=== PATIENT | male | born 1990 | race Hispanic/Latino ===

== ENCOUNTER 2019-07-06 | Emergency (ER) | payer SELFPAY ==
[2019-07-06] MEDS ORDERED: MORPHINE 4 MG/ML SYR ONE (00:21)
[2019-07-06] MEDS ORDERED: NA CHLORIDE 0.9% 1,000 ML ONE (00:21)
[2019-07-06] MEDS ORDERED: ONDANSETRON 4 MG/2 ML VIAL ONE (00:21)
[2019-07-06] MEDS ORDERED: FENTANYL CITR 100 MCG/2 ML ONE (00:44)
[2019-07-06 00:46] LABS: Basophils % 0.3 % (0-1.3); Hematocrit 43.1 % (39.6-49.0); MPV 11.2 fL (7.6-11.3); RBC Red Blood Cell Count 5.01 M/uL (4.33-5.43)
[2019-07-06 01:08] LABS: Potassium 3.5 mmol/L (3.5-5.1)
--- NOTE | 2019-07-06 02:45 | ER ---
Nurse's Notes [facility] Name: Don Han Age: 28 yrs Sex: Male : 1990 Arrival Date: 07/06/2019 Time: 00:05 Bed 14 Private MD: Diagnosis: Calculus of kidney and ureter Presentation: 07/06 00:24 Presenting complaint: Patient states: WOKE UP WITH SHARP PAIN RADIATING TO THE LEFT SIDE AND BACK. WITH NAUSEA AND VOMITING. Transition of care: patient was not received from another setting of care. Onset of symptoms was July 06, 2019 at 00:00. Risk Assessment: Do you want to hurt yourself or someone else? Patient reports no desire to harm self or others. Initial Sepsis Screen: Does the patient meet any 2 criteria? No. Patient's initial sepsis screen is negative. Does the patient have a suspected source of infection? No. Patient's initial sepsis screen is negative. Care prior to arrival: None. 00:24 Method Of Arrival: Ambulatory rv 00:24 Acuity: GRISEL 3 rv Historical: - Allergies: 00:28 No Known Allergies; rv - Home Meds: 00:28 None [Active]; rv - PMHx: 00:28 Asthma; Seizures; rv - PSHx: 00:28 None; rv - Immunization history:: Adult Immunizations unknown. - Social history:: Smoking status: Patient/guardian denies using tobacco, never smoked. - Ebola Screening: : No symptoms or risks identified at this time. Screenin:28 Abuse screen: Denies threats or abuse. Denies injuries from another. Nutritional rv screening: No deficits noted. Tuberculosis screening: No symptoms or risk factors identified. Fall Risk None identified. Assessment: 00:26 General: Appears in no apparent distress. uncomfortable, Behavior is cooperative, rv crying. Pain: Complains of pain in left lower quadrant Pain radiates to left low back Pain currently is 10 out of 10 on a pain scale. Quality of pain is described as sharp, Pain began suddenly, Is continuous. Neuro: Level of Consciousness is awake, alert, obeys commands, Oriented to person, place, time, situation. Cardiovascular: Patient's skin is warm and dry. Respiratory: Airway is patent. GI: Bowel sounds present X 4 quads. Abd is soft X 4 quads Abdomen is tender to palpation in left lower quadrant. : No signs and/or symptoms were reported regarding the genitourinary system. EENT: No signs and/or symptoms were reported regarding the EENT system. Derm: Skin is intact. Musculoskeletal: No signs and/or symptoms reported regarding the musculoskeletal system. 01:36 Reassessment: Patient appears in no apparent distress at this time. Patient and/or family updated on plan of care and expected duration. Pain level reassessed. Patient is alert, oriented x 3, equal unlabored respirations, skin warm/dry/pink. patient is still complaining of pain after giving Morphine and Fentanyl. CT scan done. awaiting result. 01:50 Reassessment: Patient appears in no apparent distress at this time. Patient and/or family updated on plan of care and expected duration. Pain level reassessed. Patient is alert, oriented x 3, equal unlabored respirations, skin warm/dry/pink. 02:38 Reassessment: Patient appears in no apparent distress at this time. No changes from previously documented assessment. Patient and/or family updated on plan of care and expected duration. Pain level reassessed. Patient is alert, oriented x 3, equal unlabored respirations, skin warm/dry/pink. Vital Signs: 00:26 BP 156 / 94; Pulse 71; Resp 15; Temp 97.7; Pulse Ox 98% ; Weight 140.61 kg; Height 6 rv ft. (182.88 cm); Pain 10/10; 01:00 BP 118 / 61; Pulse 64; Resp 15; Pulse Ox 96% on R/A; rv 02:30 BP 133 / 63; Pulse 87; Resp 18; Pulse Ox 99% on R/A; wh 00:26 Body Mass Index 42.04 (140.61 kg, 182.88 cm) ED Course: 00:05 Patient arrived in ED. cf2 00:06 Aneta Sotelo FNP-C [facility]. kb 00:06 Nicolas Stearns MD is Attending Physician. kb 00:07 Eric Rahman RN is Primary Nurse. rv 00:24 Basic Metabolic Panel Sent. rv 00:24 CBC with Diff Sent. rv 00:26 Triage completed. rv 00:29 Initial lab(s) drawn, by co, sent to lab. Inserted saline lock: 22 gauge in left rv forearm, using aseptic technique. Blood collected. 00:29 Patient has correct armband on for positive identification. Bed in low position. Call rv light in reach. Side rails up X 1. Pulse ox on. NIBP on. 00:29 Patient placed in the treatment room, on a stretcher, on pulse oximetry, Patient rv notified of wait time. 01:02 Radiology exam delayed due to lab results not completed at this time. (BUN/Creatinine). [email or web address] 01:37 Report given to kingston schwab. rv 01:51 CT completed. Patient tolerated procedure well. Patient moved to CT via stretcher. [email or web address] Patient moved back from CT. 02:05 CT Abd/Pelvis - IV Contrast Only In Process Unspecified. EDMS 02:53 No provider procedures requiring assistance completed. IV discontinued, intact, wh bleeding controlled, No redness/swelling at site. Administered Medications: 00:23 Drug: Zofran 4 mg Route: IVP; Site: left forearm; rv 01:45 Follow up: Response: No adverse reaction rv 00:24 Drug: NS 0.9% 1000 ml Route: IV; Rate: 1000 ml; Site: left forearm; rv 01:45 Follow up: IV Status: Completed infusion; IV Intake: 1000ml rv 00:24 Drug: morphine 4 mg {Note: RASS 0.} Route: IVP; Site: left forearm; rv 01:45 Follow up: Response: Pain is unchanged, physician notified; RASS: Alert and Calm (0) rv 00:50 Drug: fentaNYL (PF) 50 mcg Route: IVP; Site: left forearm; rv 01:45 Follow up: Response: Pain is unchanged, physician notified; RASS: Alert and Calm (0) rv Intake: 01:45 IV: 1000ml; Total: 1000ml. rv Outcome: 02:43 Discharge ordered by . sundeep 02:53 Discharged to home ambulatory. 02:53 Condition: good 02:53 Discharge instructions given to patient, Instructed on discharge instructions, follow up and referral plans. medication usage, urine strainer, POC Kidney Stones Demonstrated understanding of instructions, follow-up care, medications, POC Prescriptions given X 4. 02:55 Patient left the ED. Signatures: Dispatcher [employer] EDTN Aneta Sotelo FNP-C FNP-Ckb Habalo, Winsy Eric Rahman RN RN Lissett Tolentino [email or web address] Arminda Stafford cf2
--- NOTE | 2019-07-06 02:45 | EDPHYS ---
Physician Documentation [facility] Name: Don Han Age: 28 yrs Sex: Male : 1990 Arrival Date: 07/06/2019 Time: 00:05 Bed 14 Private MD: ED Physician Nicolas Stearns HPI: 07/06 00:12 This 28 yrs old Male presents to ER via Unassigned with complaints of Abdominal Pain, kb Back Pain. 00:12 The patient presents with abdominal pain in the left lower quadrant. Onset: The kb symptoms/episode began/occurred just prior to arrival. The symptoms do not radiate. Associated signs and symptoms: Pertinent positives: nausea and vomiting, Pertinent negatives: anorexia, blood in stools, chest pain, constipation, diarrhea, dysuria, fever, headache, hematuria, palpitations, shortness of breath, testicular pain, vomiting blood. The symptoms are described as constant. Modifying factors: The symptoms are alleviated by nothing, the symptoms are aggravated by nothing. Severity of pain: At its worst the pain was severe in the emergency department the pain is unchanged. The patient has not experienced similar symptoms in the past. The patient has not recently seen a physician. 00:21 Woken up with sudden, severe LLQ pain just materials buyer. Reports vomiting. Denies fever, kb diarrhea. Has never had this pain before. Denies any symptoms prior to going to sleep. Historical: - Allergies: 00:28 No Known Allergies; rv - Home Meds: 00:28 None [Active]; rv - PMHx: 00:28 Asthma; Seizures; rv - PSHx: 00:28 None; rv - Immunization history:: Adult Immunizations unknown. - Social history:: Smoking status: Patient/guardian denies using tobacco, never smoked. - Ebola Screening: : No symptoms or risks identified at this time. ROS: 00:14 Constitutional: Negative for fever, chills, and weight loss, ENT: Negative for injury, kb pain, and discharge, Neck: Negative for injury, pain, and swelling, Cardiovascular: Negative for chest pain, palpitations, and edema, Respiratory: Negative for shortness of breath, cough, wheezing, and pleuritic chest pain, Back: Negative for injury and pain, MS/Extremity: Negative for injury and deformity, Skin: Negative for injury, rash, and discoloration, Neuro: Negative for headache, weakness, numbness, tingling, and seizure. 00:14 Abdomen/GI: Positive for abdominal pain, nausea and vomiting, Negative for diarrhea, constipation, abdominal cramps, abdominal distension, anorexia. Exam: 00:14 Head/Face: Normocephalic, atraumatic. ENT: Nares patent. No nasal discharge, no kb septal abnormalities noted. Tympanic membranes are normal and external auditory canals are clear. Oropharynx with no redness, swelling, or masses, exudates, or evidence of obstruction, uvula midline. Mucous membranes moist. Neck: Trachea midline, no thyromegaly or masses palpated, and no cervical lymphadenopathy. Supple, full range of motion without nuchal rigidity, or vertebral point tenderness. No Meningismus. Chest/axilla: Normal chest wall appearance and motion. Nontender with no deformity. No lesions are appreciated. Cardiovascular: Regular rate and rhythm with a normal S1 and S2. No gallops, murmurs, or rubs. Normal PMI, no JVD. No pulse deficits. Respiratory: Lungs have equal breath sounds bilaterally, clear to auscultation and percussion. No rales, rhonchi or wheezes noted. No increased work of breathing, no retractions or nasal flaring. Back: No spinal tenderness. No costovertebral tenderness. Full range of motion. Skin: Warm, dry with normal turgor. Normal color with no rashes, no lesions, and no evidence of cellulitis. MS/ Extremity: Pulses equal, no cyanosis. Neurovascular intact. Full, normal range of motion. Neuro: Awake and alert, GCS 15, oriented to person, place, time, and situation. Cranial nerves II-XII grossly intact. Motor strength 5/5 in all extremities. Sensory grossly intact. Cerebellar exam normal. Normal gait. 00:14 Constitutional: The patient appears alert, awake, in obvious pain, uncomfortable. 00:14 Abdomen/GI: Inspection: obese Bowel sounds: normal, in all quadrants, Palpation: soft, in all quadrants, severe abdominal tenderness, in the left lower quadrant. Vital Signs: 00:26 BP 156 / 94; Pulse 71; Resp 15; Temp 97.7; Pulse Ox 98% ; Weight 140.61 kg; Height 6 rv ft. (182.88 cm); Pain 10/10; 01:00 BP 118 / 61; Pulse 64; Resp 15; Pulse Ox 96% on R/A; rv 02:30 BP 133 / 63; Pulse 87; Resp 18; Pulse Ox 99% on R/A; wh 00:26 Body Mass Index 42.04 (140.61 kg, 182.88 cm) rv MDM: 00:06 Patient medically screened. kb 00:14 Data reviewed: vital signs, nurses notes. Data interpreted: Pulse oximetry: on room air kb is 100 %. Interpretation: normal. 02:42 Counseling: I had a detailed discussion with the patient and/or guardian regarding: the kb historical points, exam findings, and any diagnostic results supporting the discharge/admit diagnosis, lab results, radiology results, the need for outpatient follow up, a family practitioner, to return to the emergency department if symptoms worsen or persist or if there are any questions or concerns that arise at home. 07/06 00:12 Order name: Basic Metabolic Panel kb 07/06 00:12 Order name: CBC with Diff kb 07/06 00:12 Order name: CT Abd/Pelvis - IV Contrast Only kb 07/06 00:12 Order name: IV Saline Lock; Complete Time: 00:24 kb 07/06 00:12 Order name: Labs collected and sent; Complete Time: 00:24 kb Administered Medications: 00:23 Drug: Zofran 4 mg Route: IVP; Site: left forearm; rv 01:45 Follow up: Response: No adverse reaction rv 00:24 Drug: NS 0.9% 1000 ml Route: IV; Rate: 1000 ml; Site: left forearm; rv 01:45 Follow up: IV Status: Completed infusion; IV Intake: 1000ml rv 00:24 Drug: morphine 4 mg {Note: RASS 0.} Route: IVP; Site: left forearm; rv 01:45 Follow up: Response: Pain is unchanged, physician notified; RASS: Alert and Calm (0) rv 00:50 Drug: fentaNYL (PF) 50 mcg Route: IVP; Site: left forearm; rv 01:45 Follow up: Response: Pain is unchanged, physician notified; RASS: Alert and Calm (0) rv Disposition: 07/06/19 02:43 Discharged to Home. Impression: Calculus of kidney and ureter. - Condition is Stable. - Discharge Instructions: Kidney Stones, [id number], Dietary Guidelines to Help Prevent Kidney Stones. - Prescriptions for Zofran 4 mg Oral Tablet - take 1 tablet by ORAL route every 6 hours As needed; 20 tablet. Flomax 0.4 mg Oral Capsule, Sust. Release 24 hr - take 1 capsule by ORAL route once daily 1/2 hour following the same meal each day; 10 capsule. Diclofenac Sodium 75 mg Oral Tablet, Delayed Release (E.C.) - take 1 tablet by ORAL route 2 times per day As needed; 30 tablet. Macrobid 100 mg Oral Capsule - take 1 capsule by ORAL route every 12 hours for 7 days; 14 capsule. - Medication Reconciliation Form, Thank You Letter, Antibiotic Education, Prescription Opioid Use form. - Follow up: Emergency Department; When: As needed; Reason: Worsening of condition. Follow up: Private Physician; When: 2 - 3 days; Reason: Recheck today's complaints, Continuance of care, Re-evaluation by your physician. Signatures: Dispatcher [employer] EDMS Aneta Sotelo, KATHLEEN BARRETT-Shai Alan Eric Rahman RN RN rv Corrections: (The following items were deleted from the chart) 02:55 02:43 07/06/2019 02:43 Discharged to Home. Impression: Calculus of kidney and ureter. Condition is Stable. Forms are Medication Reconciliation Form, Thank You Letter, Antibiotic Education, Prescription Opioid Use. Follow up: Emergency Department; When: As needed; Reason: Worsening of condition. Follow up: Private Physician; When: 2 - 3 days; Reason: Recheck today's complaints, Continuance of care, Re-evaluation by your physician. kb
[2019-07-06 06:19] VITALS: TEMP 97.7
[2019-07-06 06:21] VITALS: BP 133/63; O2SAT 99
--- NOTE | 2019-07-06 10:13 | RAD REPORT ---
EXAM DESCRIPTION: CT abdomen and pelvis with IV contrast CLINICAL HISTORY: 28-year-old male with abdominal pain, left flank pain with nausea TECHNIQUE: Axial CT imaging of the abdomen and pelvis was performed following the administration of intravenous contrast.. Sagittal and coronal reconstructed images were then performed. The CT stud y is performed according to ALARA (as low as reasonably achievable) or ALARA/IMAGE GENTLY, with autom atic adjustment of mA and/or kV according to patient size. Performed on: 07/06/2019 at 1:32 AM. COMPARISON: None FINDINGS: Lung bases: The lung bases are clear. Liver: The liver is normal in size and configuration. No focal hepatic abnormalities are identified. Liver attenuation is within normal limits. Spleen: The spleen is normal is size, configuration and attenuation. Gallbladder and bile duct: The gallbladder is well distended and unremarkable. There is no biliary ductal dilatation. Pancreas: The pancreas is grossly normal in size and configuration. Adrenal Glands: The adrenal glands are normal in size and configuration. Kidneys: The kidneys are normal in size and configuration. There is no significant hydronephrosis. Th ere is a slightly delayed nephrogram on the left and there is mild hydroureter and periureteral infla mmation likely secondary to a punctate calcification in the left ureterovesical junction. No renal ca lculi are identified. No definite solid or cystic renal mass lesions are identified. Stomach: The stomach is grossly normal. There is no definite hiatal hernia. Bowel: The bowel gas pattern is non specific and non obstructive. Appendix: The appendix is not well visualized on this examination. There is no CT evidence of acute a ppendicitis. Free air: There is no evidence of free air. Free fluid: There is no evidence of free fluid. Vasculature: The aorta is normal in caliber and contour. The inferior vena cava is grossly unremarkab le. Lymphadenopathy: No pathologic lymphadenopathy is identified. There are several mildly prominent righ t lower quadrant mesenteric lymph nodes. Bladder: The bladder is incompletely distended on this examination. Reproductive: The prostate gland is grossly within normal limits. Bones: No acute osseous abnormalities are identified. Soft tissues: No focal soft tissue abnormalities are identified. IMPRESSION: 1. Punctate calcification in the left ureterovesical junction resulting in mild left hyd roureter and periureteral inflammation and a slightly delayed nephrogram on the left. 2. There are several mildly prominent, nonspecific right lower quadrant mesenteric lymph nodes. This finding can be seen with mesenteric adenitis. Electronically signed by: Yamel Rahman DO 07/06/2019 2:16 AM CDT Due to temporary technical issues with the PACS/Fluency reporting system, reports are being signed by the in house radiologist as a courtesy to ensure prompt reporting. The interpreting radiologist is f ully responsible for the content of the report.
== END 2019-07-06 02:55 | disposition home or self-care (01) ==
LOC: ER
DX: N20.0 Calculus of kidney (principal); N20.1 Calculus of ureter
CPT/HCPCS: 36415; 74177; 80048; 85025; 96361; 96374; 96375; 99284; J2405; J3010; J7030; Q9967